=== PATIENT | female | born 1955 | race Caucasian/White ===

== ENCOUNTER → 2018-10-04 | Day surgery (SDC) | payer MEDICARE ==
[~2018-10-04] MED LIST: AMITRIPTYLINE H25 MG PO; AMPICILLIN SOD 1 GM/NS 50ML 50 ML IV ONE; BUPIVACAINE 0.5%/EPI 30 ML SDV INJ ONE; CLINDAMYCIN 600MG / 50ML 50 ML IV ONE; DEXAMETHASONE SOD PHOS INJ 4 MG/ML VIAL ONE; EX-LAX15 M1; FENTANYL CITRATE/PF 100MCG/2 ML INJ ONE; HYDROXYCHLOROQ200 MG; LEVOTHYROXINE100 MC1 IV; LIDOCAINE 2%/ EPINEPHRINE 20ML MDV ONE; LIDOCAINE HCL 2% LOCAL INJ 5 ML SDV VIAL INJ ONE; MIDAZOLAM HCL 2 MG/2 ML VIAL ONE; OMEPRAZOLE40 MG; ONDANSETRON HCL INJ 2 MG/ML VIAL ONE; PIPER-TAZ 3.375 GM 50 ML ONE; PROPOFOL IV EMULSION 10 MG/ML 20 ML VIAL ONE; ROCURONIUM BROMIDE 10 MG/ML 5ML VIAL ONE; SEVOFLURANE INHAL SOLN 250 ML PEN BTL ONE; SUCCINYLCHOLINE 200 MG/10 ML SYR ONE; SUPER B COMPLEX; TAMSULOSIN HCL0.4 MG; TEMAZEPAM15 MG
--- OUTSIDE RECORDS SUMMARY | 2018-10-04 08:04 | XMS REPORT | Clinical Summary ---
Author Author [facility] Organization [facility] Address Unknown Phone Unavailable Care Team Providers Care Grave Digger Name Role Phone Narciso Alcaraz MD PCP Allergies Comments Active Allergy Reactions Severity Noted Date Gluten 09/26/2017 Soybean 09/26/2017 Sulfa (Sulfonamide 09/26/2017 Antibiotics) Medications End Date Status Medication Sig Dispensed Refills Start Date Active amitriptyline (ELAVIL) 25 Take 25 mg by 0 MG tablet mouth nightly. Active diphenhydrAMINE Take 25 mg by 0 (BENADRYL) 25 mg capsule mouth every 6 (six) hours as needed for itching. Active MELATONIN ORAL Take by 0 mouth. Active multivitamins & Take 15 mL by 0 minerals-ferrous mouth daily. gluconate 9 mg iron/15 mL liquid Active OMEPRAZOLE ORAL Take by 0 mouth. Active sennosides-docusate Take 2 0 sodium (SENOKOT-S) 8.6-50 tablets by mg per tablet mouth daily. Active tamsulosin (FLOMAX) 0.4 Take 0.4 mg 0 mg capsule,extended by mouth release 24hr daily. Active temazepam (RESTORIL) 15 Take 15 mg by 0 mg capsule mouth nightly as needed for sleep. Active thyroid, pork, (ARMOUR Take 60 mg by 0 THYROID) 60 mg tablet mouth daily. Active VITAMIN B COMPLEX ORAL Take by 0 mouth. Active NON FORMULARY Lupus 0 medicine that begins with a H and one that begins with a M Active amitriptyline (ELAVIL) 50 0 MG tablet 7 Active hydroxychloroquine 0 (PLAQUENIL) 200 mg tablet 7 Active temazepam (RESTORIL) 30 0 mg capsule 7 Active lubiprostone (AMITIZA) 24 Take 24 mcg 0 MCG capsule by mouth 2 (two) times a day with meals. 10/12/2017 clobetasol (TEMOVATE) Apply 30 g 2 0.05 % cream topically 2 7 (two) times a day for 14 days. 11/14/2017 mupirocin (BACTROBAN) 2 % Apply 20 g 1 creamIndications: Nasal topically 3 8 bleeding (three) times a day for 14 days. 11/03/2017 oxymetazoline (AFRIN) 2 sprays into 1.5 mL 0 0.05 % nasal each nostril 8 sprayIndications: Nasal 2 (two) times bleeding a day for 3 days. Active Problems Problem Noted Date Nasal bleeding 10/31/2017 Encounters Care Team Description Date Type Specialty Valeriano Mckeon MD Nasal bleeding (Primary Dx) 11/14/2017 Office Visit Otolaryngology Valeriano Mckeon MD Nasal bleeding (Primary Dx) 10/31/2017 Office Visit Otolaryngology after 10/03/2017 Family History Medical History Relation Name Comments Breast cancer Maternal Aunt Diabetes Maternal Grandfather Heart disease Maternal Grandmother Breast cancer Mother Heart disease Mother Relation Name Status Comments Maternal Aunt Maternal Grandfather Maternal Grandmother Mother Social History Date Tobacco Use Types Packs/Day Years Used Former Smoker Smokeless Tobacco: Never Used Alcohol Use Drinks/Week oz/Week Comments Yes 2 Shots of 1.2 liquor Sex Assigned at Date Recorded Not on file Industry Job Start Date Occupation Not on file Not on file Not on file Travel End Travel History Travel Start No recent travel history available. Last Filed Vital Signs Time Taken Vital Sign Reading 11/14/2017 1:23 PM [employer] Blood Pressure 116/82 11/14/2017 1:23 PM [employer] Pulse 80 - Temperature - - Respiratory Rate - - Oxygen Saturation - - Inhaled Oxygen - Concentration 11/14/2017 1:23 PM [employer] Weight 77.6 kg (171 lb) 11/14/2017 1:23 PM [employer] Height 162.6 cm (5' 4") 11/14/2017 1:23 PM [employer] Body Mass Index 29.35 Plan of Treatment Health Maintenance Due Date Last Done Comments SHINGRIX VACCINE (1 of 2) 2004 ZOSTER VACCINE 2014 INFLUENZA VACCINE 05/24/2018 BREAST CANCER SCREENING 08/11/2018 08/11/2016 CERVICAL CANCER SCREENING 09/01/2019 09/01/2016 COLON CANCER SCREENING 10/24/2022 10/24/2012 Results Not on fileafter 10/03/2017 Insurance Payer Benefit Subscriber ID Type Phone Address Plan / Group [facility] xxxxxxxxx HMO/PPO THCARE CHOICE/CHO ICE + Advance Directives Patient has advance care planning documents on file. For more information, vaughn long contact: G[facility]me[facility] Davis [address] [place] [address]
[2018-10-04 12:30] VITALS: BP 106/75
--- NOTE | 2018-10-09 01:08 | Operative Report ---
DATE OF PROCEDURE: October 04, 2018 PREOPERATIVE DIAGNOSES 1. Refractory urge incontinence. 2. Nonobstructive urinary retention. POSTOPERATIVE DIAGNOSES 1. Refractory urge incontinence. 2. Nonobstructive urinary retention. OPERATIONS PERFORMED 1. Complete InterStim system implantation with incision and implantation of tined quadripolar lead electrodes into the left foramen S3. 2. Fluoroscopic guidance for needle placement. 3. Subcutaneous implantation of sacral nerve neurostimulator. 4. Electronic analysis and complex programming. ANESTHESIA: General. COMPLICATIONS: None. CLINICAL SUMMARY: Mer Hill is a 62-year-old woman with the above preoperative diagnoses. She had an excellent response to percutaneous stimulation testing as an outpatient via the office. She elected to proceed with permanent InterStim implantation. She is aware of the risks of bleeding, infection, injury to adjacent structures, failure of the procedure, need for additional procedures, and she elected to proceed. OPERATIVE PROCEDURE IN DETAIL: Informed consent was verified. Mer Hill was properly identified, taken to the operating room where anesthesia was uneventfully begun. The patient was then carefully and gently re-positioned in a prone position with all pressure points carefully well padded. Her pillows were placed under lower abdomen to flatten the sacrum and under the shins to allow the toes to dangle freely. The patient's back and buttocks were prepared and draped in usual sterile fashion. A needle was then placed into the left foramen S3. Depth of the needle was confirmed and adjusted fluoroscopically. We also looked for bellowing or lifting of the perineum and observation of the plantar flexion of the great toe utilizing a test stimulator box. The needle stylet was then removed and directional guidewire was then placed and confirmed fluoroscopically. The foramen needle was then removed. An incision was then made peripherally to the directional guide. The dilator and introducer sheath were then placed over the directional guide and guided into the foramen until the opaque marker with dilator was seen in the midpoint of the sacrum. The dilator obturator was unlocked and removed. The lead was then placed through the introducer sheath to the 1st white line. Position was then checked fluoroscopically. The lead was then further advanced until the 3 electrodes were visible anterior to the sacrum. Each electrode was tested for the same findings as above. Under continuous fluoroscopy, the introducer sheath was then retracted thus deploying the lead tines into the perisacral tissue. Further incision was then made in the subcutaneous tissues posterior to the iliac crest. A pocket was created. Tunneling tool was then utilized to bring the lead to the InterStim pocket site. The lead was then cleansed of bodily fluid with sterile water and thoroughly dried. It was then inserted into the pulse generator header with the metal bands aligned and the blue tip clearly visible in the distal portion of pulse generator header. A single set screw was then tightened with a hex wrench. Copious irrigation was performed. We verified hemostasis. The pulse generator was then placed into the subcutaneous pocket. The programming head was placed over the implanted neurostimulator. Impedance parameters were within acceptable limits. Both incisions were then approximated with absorbable suture in 2 layers. Sterile dressings were applied of Mastisol, Steri-Strips, and bio-occlusive dressing. A local anesthetic was infiltrated circumferentially to the incisions for postoperative pain control prior to the closure. Patient was then uneventfully reversed from anesthesia and taken to the recovery room in stable condition. There were no complications to the procedure. Patient tolerated the procedure well. Once in the recovery room, utilizing the clinician computer game programmer, the patient was programmed to lead of optimum sensation and given explicit instructions in utilizing the patient computer game programmer prior to discharge. Job#: [id number] CF
== END | disposition home or self-care (01) ==
LOC: OR 08:02
PROVIDERS: ATTEND Urology
DX: N39.41 Urge incontinence (principal); R53.1 Weakness; M32.9 Systemic lupus erythematosus, unspecified; M19.90 Unspecified osteoarthritis, unspecified site; K44.9 Diaphragmatic hernia without obstruction or gangrene; K76.0 Fatty (change of) liver, not elsewhere classified; F32.9 Major depressive disorder, single episode, unspecified; F41.9 Anxiety disorder, unspecified; Z88.2 Allergy status to sulfonamides; Z91.018 Allergy to other foods; Z01.810 Encounter for preprocedural cardiovascular examination; Z87.891 Personal history of nicotine dependence
CPT/HCPCS: 64581; 64590; 76000; 93005; 95972; C1778; C1787; C1894; J1100; J2001 ×2; J2250; J2405; J2543; J2704; L8679; L8696; J0290

== ENCOUNTER → 2019-05-14 | Outpatient (CLI) | payer MEDICARE ==
[~2019-05-14] MED LIST changes: -AMPICILLIN SOD 1 GM/NS 50ML 50 ML IV ONE; -BUPIVACAINE 0.5%/EPI 30 ML SDV INJ ONE; -CLINDAMYCIN 600MG / 50ML 50 ML IV ONE; -DEXAMETHASONE SOD PHOS INJ 4 MG/ML VIAL ONE; -FENTANYL CITRATE/PF 100MCG/2 ML INJ ONE; -LIDOCAINE 2%/ EPINEPHRINE 20ML MDV ONE; -LIDOCAINE HCL 2% LOCAL INJ 5 ML SDV VIAL INJ ONE; -MIDAZOLAM HCL 2 MG/2 ML VIAL ONE; -ONDANSETRON HCL INJ 2 MG/ML VIAL ONE; -PIPER-TAZ 3.375 GM 50 ML ONE; -PROPOFOL IV EMULSION 10 MG/ML 20 ML VIAL ONE; -ROCURONIUM BROMIDE 10 MG/ML 5ML VIAL ONE; -SEVOFLURANE INHAL SOLN 250 ML PEN BTL ONE; -SUCCINYLCHOLINE 200 MG/10 ML SYR ONE
--- NOTE | 2019-05-14 16:32 | Diagnostic Imaging Report ---
EXAMINATION: PELVIS AP 1-2 VIEWS, SACRUM X-RAY INDICATION: Bladder incontinence COMPARISON: None FINDINGS: No acute osseous injury. Left-sided implantable stimulator with single lead projecting anterior to the left sacrum. Postoperative findings of lumbosacral fusion from L4 through S1 with intact hardware. Mild anterolisthesis at L5-S1. IMPRESSION: No acute osseous injury. Postoperative findings as above. Signed by: Aditya Ryan MD on 05/14/2019 4:29 PM
== END ==
LOC: RAD 15:39
PROVIDERS: ATTEND Urology
DX: N31.2 Flaccid neuropathic bladder, not elsewhere classified (principal); N39.3 Stress incontinence (female) (male)
CPT/HCPCS: 72170; 72220

== ENCOUNTER → 2021-08-07 | Outpatient (CLI) | payer MEDICARE | LOC: RAD 12:56 | PROVIDERS: ATTEND Urology | DX: N20.0 Calculus of kidney (principal) | CPT/HCPCS: 72220 ==

== ENCOUNTER → 2022-04-27 | Outpatient (CLI) | payer MEDICARE | LOC: RAD 11:03 | PROVIDERS: ATTEND Urology | DX: N39.41 Urge incontinence (principal) | CPT/HCPCS: 72220 ==

== ENCOUNTER → 2022-06-18 | Day surgery (SDC) | payer MEDICARE ==
[2022-06-16 11:51] LABS: BASOPHILS # (AUTO) 0.1 (0.0-0.1); BASOPHILS % 0.9 % (0.0-1.0); EOSINOPHILS # (AUTO) 0.3 (0.0-0.4); EOSINOPHILS % 4.1 % (0.0-6.0); HEMATOCRIT 45.1 % (34.2-44.1); HEMOGLOBIN 14.4 g/dL (12.0-16.0); LYMPHOCYTES # (AUTO) 1.7 (1.0-3.2); LYMPHOCYTES % 26.3 % (18.0-39.1); MEAN CORPUSCULAR HEMOGLOBIN 31.2 pg (28-32); MEAN CORPUSCULAR HGB CONC 31.9 g/dL (31-35); MEAN CORPUSCULAR VOLUME 97.8 fL (81-99); MONOCYTES # (AUTO) 0.7 (0.2-0.8); MONOCYTES % 10.1 % (4.4-11.3); NEUTROPHILS # (AUTO) 3.9 (2.1-6.9); NEUTROPHILS % 58.3 % (38.7-80.0); PLATELET COUNT 210 x10e3/uL (140-360); RED BLOOD COUNT 4.61 x10e6/uL (3.6-5.1); RED CELL DISTRIBUTION WIDTH 12.6 % (11.7-14.4)
[2022-06-16 12:17] LABS: CALCIUM 8.9 mg/dL (8.4-10.2); CREATININE, SERUM 0.91 mg/dL (0.57-1.11)
[~2022-06-18] MED LIST changes: +CALCIUM; +Clindamycin INJ 300 MG/50 ML 50 ML IV ONE; +DEXAMETHASONE SOD PHOS INJ 4 MG/ML SDV ONE; +GABAPENTIN600 MG; +GENTAMICIN 80MG/NS 100 ML 200 ML IV ONE; +KETOROLAC TROMETHAMINE 30 MG/ML VIAL ONE; +LEVOTHYROXINE100 MC2; +LIDOCAINE 2% /EPINEPHRINE 20 ML SDV INJ ONE; +LIDOCAINE HCL 2% LOCAL INJ 5 ML SDV VIAL INJ ONE; +OMEPRAZOLE40 MG PO; +ONDANSETRON HCL INJ 2MG/ML 2ML 2 MG/ML VIAL ONE; +PIPERACILLIN/TAZOBACTAM 3.375 GM VIAL ONE; +POVIDONE IODINE 0.05% 0.05 % ML PO ONE; +PROPOFOL IV EMULSION 10 MG/ML 20 ML VIAL ONE; +ROCURONIUM BROMIDE 10 MG/ML 5ML VIAL IV ONE; +SEVOFLURANE INHAL SOLN 250 ML PEN BTL ONE; +SUCCINYLCHOLINE CHLORIDE 20 MG/ML 10ML VIAL ONE; +TRAZODONE HCL100 MG PO; +VENLAFAXINE HCL75 MG PO; +VITAMIN D
[2022-06-18 17:15] VITALS: BP 109/74
== END | disposition home or self-care (01) ==
LOC: OR 10:14
PROVIDERS: ATTEND Urology
DX: N39.41 Urge incontinence (principal); T85.111A Breakdown (mechanical) of implanted electronic neurostimulator of peripheral nerve electrode (lead), initial encounter; N39.0 Urinary tract infection, site not specified; M32.9 Systemic lupus erythematosus, unspecified; M54.50 Low back pain, unspecified; M06.9 Rheumatoid arthritis, unspecified; Y83.8 Other surgical procedures as the cause of abnormal reaction of the patient, or of later complication, without mention of misadventure at the time of the procedure; Z88.2 Allergy status to sulfonamides; Z91.018 Allergy to other foods; Z01.810 Encounter for preprocedural cardiovascular examination; Z01.812 Encounter for preprocedural laboratory examination; Z01.818 Encounter for other preprocedural examination; Z20.822 Contact with and (suspected) exposure to COVID-19; Z79.899 Other long term (current) drug therapy
CPT/HCPCS: 0223U; 36415; 64581; 64590; 71046; 76000; 80048; 85025; 88300; 93005; 95972; C1713; C1778; C1787; J0330; J1100; J1580; J1885; J2001 ×2; J2405; J2543; J2704